=== PATIENT | female | born 1960 | race Caucasian/White ===

== ENCOUNTER 2016-11-14 21:05 | Emergency (ER) | payer OTHER ==
[~2016-11-14] VITALS: Ht 157.5 cm; Wt 85.9 kg
[~2016-11-14 21:05] MED LIST: IBUP-44 PO
[2016-11-14 22:23] VITALS: BP 130/74
--- NOTE | 2016-11-14 23:47 | NUR ---
PT TAKEN TO BED 8
--- NOTE | 2016-11-14 23:55 | NUR ---
PT IS 56 Y/O F WITH C/O R EYE REDNESS AND HEADACHES X 3 DAYS. PT DENIES ANY INJURY TO AFFECTED EYE. NO MED HX.
--- NOTE | 2016-11-15 00:15 | NUR ---
Patient being evaluated by DR. LUQUE at bedside.
[2016-11-15 00:54] VITALS: BP 124/68
--- NOTE | 2016-11-15 00:55 | NUR ---
Patient discharged with v/s stable BY DR. LUQUE. Written and verbal after care instructions given and explained. Patient verbalized understanding. Ambulatory with steady gait. All questions addressed prior to discharge. Advised to follow up with PMD.
== END 2016-11-15 00:55 | disposition home or self-care (01) ==
LOC: MED 21:05
DX: H11.31 Conjunctival hemorrhage, right eye (principal); Z88.0 Allergy status to penicillin
CPT/HCPCS: 99283

== ENCOUNTER 2016-11-23 13:00 | Emergency (ER) | payer OTHER ==
[~2016-11-23] VITALS: Ht 152.4 cm; Wt 81.6 kg
[2016-11-23 14:00] VITALS: BP 130/73
--- NOTE | 2016-11-23 19:00 | NUR ---
TO ER OF 1
--- NOTE | 2016-11-23 19:25 | NUR ---
Patient being evaluated by physician.
[2016-11-23] MEDS: HYDROcodone/APAP 5/325 MG 1 TAB TAB PO ONE (19:56)
[2016-11-23] MEDS: KETOROLAC 30 MG/ML VIAL IM ONE (19:56)
[2016-11-23 21:05] VITALS: BP 122/64
--- NOTE | 2016-11-23 21:05 | NUR ---
Patient discharged with v/s stable. Written and verbal after care instructions given and explained. Patient alert, oriented and verbalized understanding of instructions. Ambulatory with steady gait. All questions addressed prior to discharge. ID band removed. Patient advised to follow up with PMD. Rx of Tylenol #3 and Naproxen given. Patient educated on indication of medication including possible reaction and side effects. Opportunity to ask questions provided and answered.
== END 2016-11-23 21:05 | disposition home or self-care (01) ==
LOC: MED 13:00
DX: S83.92XA Sprain of unspecified site of left knee, initial encounter (principal); Z88.0 Allergy status to penicillin; W07.XXXA Fall from chair, initial encounter; Y93.89 Activity, other specified; Y92.89 Other specified places as the place of occurrence of the external cause; Y99.8 Other external cause status
CPT/HCPCS: 29505; 73562; 96372; 99284; J1885

== ENCOUNTER 2018-01-06 08:30 | Emergency (ER) | payer SELFPAY ==
[~2018-01-06] VITALS: Ht 160 cm; Wt 83.9 kg
--- NOTE | 2018-01-06 08:43 | NUR ---
PT AMBULATED TO ER BED 09
[2018-01-06 08:46] VITALS: BP 143/74
--- NOTE | 2018-01-06 08:49 | NUR ---
57 YO FEMALE BIB [facility] FOR SORE THROAT FOR THREE DAYS. DENIES N/V/D/FEVER/CHILLS. PT AAOX4. GCS 15. CMS INTACT. RR EVEN AND UNLABORED. LUNGS CLEAR. ABD SOFT, NON-TENDER. ER MD NOTIFIED. PT NEEDS MET. SAFETY PRECAUTIONS IN PLACE. WILL CONTINUE TO MONITOR.
[2018-01-06] MEDS ORDERED: DEXAMETHASONE 10 MG/ML VIAL IM ONE (09:10)
[2018-01-06] MEDS ORDERED: HYDROcodone/APAP 5/325 MG 1 TAB TAB PO ONE (09:10)
--- NOTE | 2018-01-06 09:30 | NUR ---
pt resting comfortably in [facility] at this time w/ vss and rr even and unlabored. safety precautions in place. will continue to monitor.
[2018-01-06 10:06] VITALS: BP 143/74
--- NOTE | 2018-01-06 10:06 | NUR ---
Patient discharged with v/s stable. Written and verbal after care instructions given and explained. Patient alert, oriented and verbalized understanding of instructions. Ambulatory with steady gait. All questions addressed prior to discharge. ID band removed. Patient advised to follow up with PMD. Rx of Azithromycin and Lynch given. Patient educated on indication of medication including possible reaction and side effects. Opportunity to ask questions provided and answered.
== END 2018-01-06 10:06 | disposition home or self-care (01) ==
LOC: MED 08:30
DX: J03.00 Acute streptococcal tonsillitis, unspecified (principal); R03.0 Elevated blood-pressure reading, without diagnosis of hypertension; Z79.899 Other long term (current) drug therapy; Z88.0 Allergy status to penicillin
CPT/HCPCS: 87081; 96372; 99283; J1100

== ENCOUNTER 2022-01-04 12:02 | Emergency (ER) | payer OTHER ==
[~2022-01-04] VITALS: Ht 152.4 cm; Wt 86.2 kg
[~2022-01-04 12:02] MED LIST changes: +ACET-10509 PO; +APIX2.5 PO; +DEC4 PO
[2022-01-04 12:13] VITALS: BP 152/79
--- NOTE | 2022-01-04 12:40 | NUR ---
BIB SELF C/O 10/10 NERVE PAIN , RASH TO R BUTTOCK X 2 WEEKS , DENIES TRAUMA/FALL.
--- NOTE | 2022-01-04 12:40 | NUR ---
Ken hebert in [facility] - 01/04/22 at 1428 by [email or web address] BIB SELF C/O 04/04 NERVE PAIN TO R BUTTOCK X 2 WEEKS , DENIES TRAUMA/FALL.
[2022-01-04] MEDS ORDERED: KETOROLAC 30 MG/ML VIAL IM ONE (13:40)
[2022-01-04] MEDS ORDERED: GABA300C PO (13:45)
[2022-01-04] MEDS ORDERED: IBUP-2213 PO (13:45)
[2022-01-04] MEDS ORDERED: ACYC-278 PO (13:45)
[2022-01-04 14:30] VITALS: BP 156/87
--- NOTE | 2022-01-04 14:30 | NUR ---
Patient discharged with v/s stable. Written and verbal after care instructions given and explained. Patient alert, oriented and verbalized understanding of instructions. Ambulatory with steady gait. All questions addressed prior to discharge. ID band removed. Patient advised to follow up with PMD. Rx of NEURONTIN, ACYCLOVIR & GABAPENTIN given. Patient educated on indication of medication including possible reaction and side effects. Opportunity to ask questions provided and answered.
== END 2022-01-04 14:30 | disposition home or self-care (01) ==
LOC: MED 12:02
DX: B02.9 Zoster without complications (principal); Z88.0 Allergy status to penicillin; Z79.899 Other long term (current) drug therapy
CPT/HCPCS: 96372; 99283; J1885

== ENCOUNTER 2022-04-11 20:36 | Emergency (ER) | payer OTHER ==
[~2022-04-11] VITALS: Ht 147.3 cm; Wt 83.5 kg
[~2022-04-11 20:36] MED LIST changes: +ACYC-278 PO; +GABA300C PO; +IBUP-2213 PO
[2022-04-11 21:07] VITALS: BP 139/66
[2022-04-11] MEDS ORDERED: ACETAMINOPHEN 325 MG TAB PO ONE (21:15)
[2022-04-11] MEDS ORDERED: IBUPROFEN 600 MG TAB PO ONE (21:15)
--- NOTE | 2022-04-11 21:15 | NUR ---
SWABS COLLECTED AND GIVEN LORI FROM LAB.
--- NOTE | 2022-04-11 21:16 | NUR ---
PT TO PJ FOR MEDICATION.
--- NOTE | 2022-04-11 21:21 | NUR ---
Pt ambulated to bed 8
--- NOTE | 2022-04-11 22:52 | NUR ---
Dr. Evans examining patient.
[2022-04-11] MEDS ORDERED: ALBU0.0912 IH (22:55)
[2022-04-11] MEDS ORDERED: BENZ150C2 PO (22:55)
[2022-04-11 23:26] VITALS: BP 122/70
== END 2022-04-11 23:27 | disposition home or self-care (01) ==
LOC: MED 20:36
DX: R50.9 Fever, unspecified (principal); Z20.822 Contact with and (suspected) exposure to COVID-19; Z88.0 Allergy status to penicillin
CPT/HCPCS: 71045; 99284

== ENCOUNTER 2022-09-10 03:25 | Emergency (ER) | payer OTHER ==
[~2022-09-10] VITALS: Ht 152.4 cm; Wt 85.7 kg
[~2022-09-10 03:25] MED LIST changes: +ALBU0.0912 IH; +BENZ150C2 PO
[2022-09-10 03:40] VITALS: BP 153/90
--- NOTE | 2022-09-10 03:40 | NUR ---
TO BED AMBULATORY
--- NOTE | 2022-09-10 04:00 | NUR ---
PT IS HERE BECAUSE SHE HAS TOOTACHE. SHE IS FROM HOME, AMBULATORY AND ROOM AIR.
[2022-09-10] MEDS ORDERED: LIDOCAINE/EPI 2% 1:100000 20 ML VIAL INJ ONE (04:10)
--- NOTE | 2022-09-10 04:22 | NUR ---
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
--- NOTE | 2022-09-10 04:37 | NUR ---
Patient discharged with v/s stable. Written and verbal after care instructions given and explained. Patient verbalized understanding. Ambulatory with steady gait. All questions addressed prior to discharge. Advised to follow up with PMD. PT LEFT WITH HER BELONGINGS.
[2022-09-10 05:09] VITALS: BP 153/90
== END 2022-09-10 05:09 | disposition home or self-care (01) ==
LOC: MED 03:25
DX: K08.89 Other specified disorders of teeth and supporting structures (principal); I10 Essential (primary) hypertension; Z88.0 Allergy status to penicillin; Z79.899 Other long term (current) drug therapy
CPT/HCPCS: 99281